=== PATIENT | female | born 2000 | race Caucasian/White ===

== ENCOUNTER 2018-01-27 15:17 | Emergency (ER) | payer BC ==
[~2018-01-27] VITALS: Ht 172.7 cm; Wt 78.9 kg
[2018-01-27 15:28] VITALS: TEMP 97.7
[2018-01-27 16:13] LABS: BASO % 0.3 % (0.0-2.0); EOS # 0.1 (0.0-0.7); EOS % 0.4 % (0-4.0); GRAN # 11.9 (1.4-6.5); HEMATOCRIT 37.3 % (35.0-45.0); HEMOGLOBIN 12.2 g/dl (12.0-15.0); LYMPH # 2.2 (1.2-3.4); LYMPH % 14.8 % (20.0-51.0); MEAN CELL VOLUME 94 fl (80.0-95.0); MEAN CORPUSCULAR HEMOGLOBIN 31 pg (26.0-32.0); MEAN CORPUSCULAR HGB CONC 33 g/dl (33.0-37.0); MEAN PLATELET VOLUME 9.5 fl (7.4-10.4); MONO # 0.6 (0.1-0.6); MONO % 4.2 % (1.7-9.3); PLATELET COUNT 249 K/mm3 (130-400); RED BLOOD COUNT 3.99 M/mm3 (4.10-5.30); REDCELL DISTRIBUTION WIDTH-CV 12.6 % (11.5-14.5)
[2018-01-27 16:22] LABS: ALBUMIN 4.1 gm/dL (3.5-5.0); BILIRUBIN,TOTAL 0.5 mg/dL (0.0-1.0); CALCIUM 8.8 mg/dL (8.4-10.2); CREATININE, serum 0.76 mg/dL (0.52-1.25); POTASSIUM 3.6 mmol/L (3.4-5.0); TOTAL PROTEIN 7.3 gm/dL (6.4-8.2)
[2018-01-27 18:50] VITALS: BP 113/67; PULSE 93
== END 2018-01-27 18:30 | disposition home or self-care (01) ==
LOC: COL.ER 15:17
PROVIDERS: Nurse Practitioner
DX: R10.31 Right lower quadrant pain (principal)

== ENCOUNTER → 2019-02-14 | Outpatient (REF) | LOC: WSPT 10:23 | DX: Z02.89 Encounter for other administrative examinations (principal) ==